=== PATIENT | male | born 1965 | race Caucasian/White ===

== ENCOUNTER 2020-12-02 13:09 | Inpatient (IN) | payer OTHER ==
[~2020-12-02 13:09] MED LIST: CYCLOBENZAPRINE10 MG PO; ETODOLAC500 MG PO; LEXAPRO 10MG TA10 MG PO; NEURONTIN300 MG PO; PRINIVIL20 MG PO; PROAIR HFA8.5 GM INH; VENTOLIN HFA IN18 GM INH; ZESTRIL30 MG PO
[2020-12-02 15:22] LABS: BASOPHIL 0.5 % (0-2); EOSINOPHIL 1.4 % (0-5); HCT 48.6 % (42.0-52.0); HGB 16.7 g/dl (13.2-18.0); LYMPHOCYTE 11.1 % (15-48); MCH 35.8 pg (25.0-31.0); MCHC 34.4 g/dL (32.0-36.0); MCV 104.1 fL (78.0-100.0); MONOCYTE 10.6 % (0-12); MPV 9.2 fL (6.0-9.5); NEUTROPHIL 75.9 % (41-80); NRBC 0; PLT 264 K/uL (150-400); RBC 4.67 M/uL (4.70-6.00); RDW 12.6 % (11.5-14.0); WBC 11.6 K/uL (4.0-10.5)
[2020-12-02 15:40] LABS: POTASSIUM 4.3 mmol/L (3.5-5.1)
[2020-12-02] MEDS ORDERED: IRBESARTAN300 MG PO (21:42)
[2020-12-02] MEDS ORDERED: CYCLOBENZAPRINE10 MG PO (21:43)
[2020-12-02] MEDS ORDERED: OMEPRAZOLE 20MG20 MG PO (21:43)
[2020-12-02] MEDS ORDERED: LEVOTHYROXINE50 MCG PO (21:43)
[2020-12-02] MEDS ORDERED: DUONEB 2.5-0.5M1 AMP INH (21:44)
[2020-12-03 05:50] LABS: BASOPHIL 0.2 % (0-2); EOSINOPHIL 0.1 % (0-5); HCT 43.1 % (42.0-52.0); HGB 15.1 g/dl (13.2-18.0); LYMPHOCYTE 4.7 % (15-48); MCH 35.9 pg (25.0-31.0); MCV 102.4 fL (78.0-100.0); MPV 8.9 fL (6.0-9.5); NEUTROPHIL 91.4 % (41-80); NRBC 0; PLT 209 K/uL (150-400); RBC 4.21 M/uL (4.70-6.00); RDW 12.4 % (11.5-14.0); WBC 10.7 K/uL (4.0-10.5)
[2020-12-03 06:33] LABS: ALBUMIN 2.7 g/dL (3.4-5.0); BUN/CREAT RATIO (CALC) 11.8 RATIO; CREATININE 0.76 mg/dL (0.67-1.17); GLOBULIN (CALCULATION) 4.4 g/dL; POTASSIUM 4.4 mmol/L (3.5-5.1); TOTAL PROTEIN 7.1 g/dL (6.4-8.2)
== END 2020-12-03 13:30 | disposition other institution (70) | DRG 280 ==
LOC: FER 13:09 → FTCU 19:56
PROVIDERS: Internal Medicine; Nurse Practitioner; ADMIT Internal Medicine
DX: I21.4 Non-ST elevation (NSTEMI) myocardial infarction (principal); J18.9 Pneumonia, unspecified organism; J96.01 Acute respiratory failure with hypoxia; J44.0 Chronic obstructive pulmonary disease with (acute) lower respiratory infection; J44.1 Chronic obstructive pulmonary disease with (acute) exacerbation; Z20.822 Contact with and (suspected) exposure to COVID-19; I10 Essential (primary) hypertension; F17.210 Nicotine dependence, cigarettes, uncomplicated; M50.90 Cervical disc disorder, unspecified, unspecified cervical region; I25.10 Atherosclerotic heart disease of native coronary artery without angina pectoris; E78.5 Hyperlipidemia, unspecified; Z90.89 Acquired absence of other organs; Z98.890 Other specified postprocedural states; Z79.899 Other long term (current) drug therapy
CPT/HCPCS: 36415; 36600; 71275; 80048; 80053; 80061; 82803; 83735; 84145; 84484; 85025; 85730; 93005; 94010; 94640; 94667; 94668; J0456; J0696; J1170; J1644; J2270; J2930; J7050; Q9967; U0002

== ENCOUNTER 2020-12-25 10:53 | Day surgery (SDCO) | payer OTHER ==
[~2020-12-25] VITALS: Ht 180.3 cm; Wt 88.7 kg
[~2020-12-25 10:53] MED LIST changes: +DUONEB 2.5-0.5M1 AMP INH; +IRBESARTAN300 MG PO; +LEVOTHYROXINE50 MCG PO; +OMEPRAZOLE 20MG20 MG PO
[2020-12-25 12:00] LABS: BASOPHIL 0.9 % (0-2); EOSINOPHIL 7.1 % (0-5); HCT 38.6 % (42.0-52.0); HGB 13.3 g/dl (13.2-18.0); MCH 33.8 pg (25.0-31.0); MCHC 34.5 g/dL (32.0-36.0); MONOCYTE 7.8 % (0-12); MPV 8.3 fL (6.0-9.5); NEUTROPHIL 64.9 % (41-80); NRBC 0; PLT 291 K/uL (150-400); RBC 3.94 M/uL (4.70-6.00); WBC 9.4 K/uL (4.0-10.5)
[2020-12-25 12:07] LABS: PROTHROMBIN TIME 49.7 SECONDS (11.8-13.4); PTT 64.9 SECONDS (24.4-34.7)
[2020-12-25 12:09] LABS: INR 5.64 (0.9-1.2)
[2020-12-25 12:15] LABS: ALBUMIN 2.8 g/dL (3.4-5.0); BILIRUBIN - TOTAL 0.4 mg/dL (0.2-1.0); CREATININE 0.69 mg/dL (0.67-1.17); GLOBULIN (CALCULATION) 4.3 g/dL; POTASSIUM 3.5 mmol/L (3.5-5.1); TOTAL PROTEIN 7.1 g/dL (6.4-8.2)
[2020-12-25 13:41] LABS: BILIRUBIN NEGATIVE (NEGATIVE); BLOOD NEGATIVE Ery/uL (NEGATIVE); CLARITY CLEAR (CLEAR); COLOR YELLOW (YELLOW); GLUCOSE (U) NORMAL (NORMAL); LEUKOCYTES NEGATIVE Leu/uL (NEGATIVE); NITRITE NEGATIVE (NEGATIVE); PROTEIN NEGATIVE (NEGATIVE); UROBILINOGEN 0.2 mg/dL (0.2-1.0)
[2020-12-25] MEDS ORDERED: LIPITOR40 MG PO (16:48)
[2020-12-25] MEDS ORDERED: ASPIRIN EC81 MG PO (16:48)
[2020-12-25] MEDS ORDERED: COREG 3.125M3.125 MG PO (16:49)
[2020-12-25] MEDS ORDERED: PLAVIX75 MG PO (16:49)
[2020-12-25] MEDS ORDERED: COUMARIN1 GM PO (16:50)
[2020-12-25 17:40] LABS: HGB 12.8 g/dL (13.2-18.0)
--- NOTE | 2020-12-26 02:04 | NUR ---
12/26/2020 @ 0130 CIWA SCORE = 0
[2020-12-26 06:54] LABS: BASOPHIL 0.9 % (0-2); EOSINOPHIL 9.4 % (0-5); HCT 40.3 % (42.0-52.0); HGB 13.7 g/dl (13.2-18.0); LYMPHOCYTE 19.4 % (15-48); MCH 33.7 pg (25.0-31.0); MCV 99.3 fL (78.0-100.0); MONOCYTE 6.8 % (0-12); MPV 8.1 fL (6.0-9.5); NEUTROPHIL 63.2 % (41-80); NRBC 0; PLT 280 K/uL (150-400); RBC 4.06 M/uL (4.70-6.00); RDW 12.1 % (11.5-14.0); WBC 7.7 K/uL (4.0-10.5)
[2020-12-26 07:07] LABS: INR 2.83 (0.9-1.2); PROTHROMBIN TIME 28.8 SECONDS (11.8-13.4)
[2020-12-26 07:30] LABS: ALBUMIN 2.8 g/dL (3.4-5.0); BILIRUBIN - TOTAL 1.1 mg/dL (0.2-1.0); BUN/CREAT RATIO (CALC) 10.5 RATIO; CREATININE 0.76 mg/dL (0.67-1.17); GLOBULIN (CALCULATION) 4.5 g/dL; POTASSIUM 4.1 mmol/L (3.5-5.1); TOTAL PROTEIN 7.3 g/dL (6.4-8.2)
[2020-12-26] MEDS ORDERED: FOLIC ACID1 MG PO (10:21)
[2020-12-26] MEDS ORDERED: VITAMIN B-1100 M1 PO (10:21)
== END 2020-12-26 11:32 | disposition home or self-care (01) ==
LOC: FER 10:53 → FTCU 14:46 → FMS 14:46
PROVIDERS: Internal Medicine; ADMIT Family Medicine
DX: K62.5 Hemorrhage of anus and rectum (principal); R79.1 Abnormal coagulation profile; I25.10 Atherosclerotic heart disease of native coronary artery without angina pectoris; I25.2 Old myocardial infarction; K57.90 Diverticulosis of intestine, part unspecified, without perforation or abscess without bleeding; I71.4 Abdominal aortic aneurysm, without rupture; F10.10 Alcohol abuse, uncomplicated; R91.8 Other nonspecific abnormal finding of lung field; E27.9 Disorder of adrenal gland, unspecified; K57.32 Diverticulitis of large intestine without perforation or abscess without bleeding; J44.9 Chronic obstructive pulmonary disease, unspecified; F17.200 Nicotine dependence, unspecified, uncomplicated; Z79.82 Long term (current) use of aspirin; Z79.02 Long term (current) use of antithrombotics/antiplatelets; Z79.899 Other long term (current) drug therapy; Z20.822 Contact with and (suspected) exposure to COVID-19; Z95.828 Presence of other vascular implants and grafts
CPT/HCPCS: 36415; 80053; 81003; 82150; 83690; 84443; 85018; 85025; 85610; 85730; 86850; 86900; 86901; 93005; G0378; Q9967; U0002

== ENCOUNTER 2021-05-31 22:00 | Emergency (ER) | payer OTHER ==
[~2021-05-31 22:00] MED LIST changes: +ASPIRIN EC81 MG PO; +COREG 3.125M3.125 MG PO; +COUMARIN1 GM PO; +CYMBALTA60 MG PO; +DULOXETINE HCL30 MG PO; +FOLIC ACID1 MG PO; +GABAPENTIN600 MG PO; +LIPITOR40 MG PO; +PLAVIX75 MG PO; +VITAMIN B-1100 M1 PO
[2021-05-31 22:51] LABS: BASOPHIL 1.7 % (0-2); EOSINOPHIL 3.8 % (0-5); HGB 15.4 g/dl (13.2-18.0); LYMPHOCYTE 24.1 % (15-48); MCHC 34.2 g/dL (32.0-36.0); MCV 87.5 fL (78.0-100.0); MONOCYTE 7.1 % (0-12); MPV 8.7 fL (6.0-9.5); NEUTROPHIL 63.1 % (41-80); NRBC 0; PLT 187 K/uL (150-400); RBC 5.14 M/uL (4.70-6.00); RDW 13.6 % (11.5-14.0); WBC 8.5 K/uL (4.0-10.5)
[2021-05-31 23:18] LABS: ALBUMIN 3.5 g/dL (3.4-5.0); ALKALINE PHOSHATASE 97 U/L (46-116); ALT 43 U/L (16-63); AST 38 U/L (15-37); BILIRUBIN - TOTAL 0.5 mg/dL (0.2-1.0); BUN 7 mg/dL (7-18); BUN/CREAT RATIO (CALC) 8.4 RATIO; CHLORIDE 100 mmol/L (98-107); CO2 (BICARBONATE) 24 mmol/L (21-32); CREATININE 0.83 mg/dL (0.67-1.17); GLOBULIN (CALCULATION) 4.2 g/dL; GLUCOSE 95 mg/dL (74-106); INR 1.04 (0.9-1.2); POTASSIUM 2.9 mmol/L (3.5-5.1); TOTAL PROTEIN 7.7 g/dL (6.4-8.2)
[2021-05-31 23:19] LABS: ACETAMINOPHEN (TYLENOL) < 2.0 ug/mL (10.0-30.0)
[2021-06-01 01:06] LABS: BILIRUBIN NEGATIVE (NEGATIVE); BLOOD NEGATIVE Ery/uL (NEGATIVE); CLARITY CLEAR (CLEAR); COLOR YELLOW (YELLOW); GLUCOSE (U) NORMAL (NORMAL); LEUKOCYTES NEGATIVE Leu/uL (NEGATIVE); NITRITE NEGATIVE (NEGATIVE); PROTEIN NEGATIVE (NEGATIVE); SPECIFIC GRAVITY <=1.005 (1.001-1.030); UROBILINOGEN 0.2 mg/dL (0.2-1.0); pH 6.5 (5.0-9.0)
[2021-06-01 01:10] LABS: AMPHETAMINES NEGATIVE (NEGATIVE); BARBITURATES NEGATIVE (NEGATIVE); ECSTASY (MDMA) NEGATIVE (NEGATIVE); MARIJUANA (THC) NEGATIVE (NEGATIVE); METHADONE NEGATIVE (NEGATIVE); OPIATES NEGATIVE (NEGATIVE); OXYCODONE NEGATIVE (NEGATIVE)
== END 2021-06-01 02:50 | disposition other institution (70) ==
LOC: FER 22:00
PROVIDERS: Emergency Medicine
DX: I21.4 Non-ST elevation (NSTEMI) myocardial infarction (principal); F10.129 Alcohol abuse with intoxication, unspecified; I10 Essential (primary) hypertension; I25.10 Atherosclerotic heart disease of native coronary artery without angina pectoris; F17.200 Nicotine dependence, unspecified, uncomplicated; Z79.1 Long term (current) use of non-steroidal anti-inflammatories (NSAID); Z79.82 Long term (current) use of aspirin; Z79.01 Long term (current) use of anticoagulants; Z79.02 Long term (current) use of antithrombotics/antiplatelets; Z79.899 Other long term (current) drug therapy; Z20.822 Contact with and (suspected) exposure to COVID-19
CPT/HCPCS: 36415; 71275; 80053; 80305; 81003; 84484; 85025; 85610; 93005; G0480; J1644; J3475; J3480; J7030; J7050; Q9967; U0002